=== PATIENT | male | born 1995 | race Two or more races ===

== ENCOUNTER 2017-07-03 20:01 | Emergency (ER) | payer SELFPAY ==
[2017-07-03 22:56] LABS: CHLAM PCR DETECTED (NOT DETECT); GON PCR NOT DETECTED (NOT DETECT)
[2017-07-03] MEDS ORDERED: AZITHROMYCIN 250 MG TABLET PO ONE (23:22)
[2017-07-03] MEDS ORDERED: CEFTRIAXONE INJ 250 MG VIAL IM ONE (23:22)
--- NOTE | 2017-07-03 23:28 | ER Document Report ---
ED GI/ - General Chief Complaint: STD Exposure Stated Complaint: STD CHECK Time Seen by Provider: 07/03/17 22:52 Mode of Arrival: Ambulatory Information source: Patient TRAVEL OUTSIDE OF THE [place] IN LAST 30 DAYS: No - HPI Patient complains to provider of: Other - std exposure Notes: 07/03/17 23:23 Patient is here with complaints of being exposed to chlamydia. He states that his girlfriend was positive and he would like to be checked. He complains some occasional mild burning with urination, no penile discharge or swelling. No abdominal pain. No fever. No nausea, vomiting, diarrhea. No rash. During his general exam he was noted to have a mass to the superior aspect of his left testicle I believe involving the epididymis and not the actual testicle itself. Patient states that he has had that for a long time. He denies any other complaints at this time. - Related Data Allergies/Adverse Reactions: No Known Allergies Allergy (Unverified 07/03/17 20:03) Past Medical History - Social History Smoking Status: Former Smoker Chew tobacco use (# tins/day): No Frequency of alcohol use: None Drug Abuse: None Family History: Reviewed & Not Pertinent Patient has suicidal ideation: No Patient has homicidal ideation: No Renal/ Medical History: Denies: Hx Peritoneal Dialysis Psychiatric Medical History: Reports: Hx Attention Deficit Hyperactivity Disorder Review of Systems - Review of Systems -: Yes All other systems reviewed and negative Physical Exam - Vital signs Vitals: Temp Pulse Resp BP Pulse Ox 97.9 F 81 16 114/86 H 98 07/03/17 20:15 07/03/17 20:15 07/03/17 20:15 07/03/17 20:15 07/03/17 20:15 - Notes Notes: GENERAL: alert, cooperative, nontoxic, no distress. HEAD: normocephalic, atraumatic EYES: conjunctiva pink without discharge, no external redness or swelling. EARS: no external swelling, no external redness NOSE: atraumatic, no external swelling MOUTH/THROAT: mucous membranes moist and pink, posterior pharynx without erythema, swelling, exudate. No trismus or drooling. NECK: soft, supple, full range of motion, no meningismus. CHEST: no distress, lungs clear and equal throughout. No wheezing, rales, rhonchi. CARDIAC: regular rate and rhythm, no murmur, normal capillary refill, normal pulses. No peripheral edema noted. ABDOMEN: Soft, nontender. Bone tenderness or guarding. BACK: full range of motion, no CVA tenderness. EXTREMITIES: full range of motion of all extremities. No redness, no swelling. NEURO: alert and oriented x 3, no focal deficits, full range of motion of all extremities. PYSCH: appropriate mood, affect. Patient is cooperative. SKIN: pink, warm, dry, no rash. : Circumcised penis. No penile discharge. No rash. Testicles are descended bilaterally. Right testicle normal. Left testicle with a mass to the superior aspect I believe involving the epididymis. No tenderness. No redness, swelling , rash to the scrotum. Course - Re-evaluation Re-evalutation: 07/03/17 23:25 Patient is nontoxic appearing with stable vitals. The patient is here after being exposed to chlamydia. He has had some mild dysuria but denies any other symptoms. On exam he has no signs of infection. No abdominal tenderness. Does is noted to have a mass to the superior aspect of the left testicle/ epididymis. Nontender to palpation. Patient states that has been there for quite some time. I instructed him I would like to order an ultrasound to rule out a serious source of this mass, he states that he does not have time to wait and will do this as an outpatient. I will refer him to urology as well as primary care to get established and to have this mass evaluated. He is noted to be positive for chlamydia in the emergency department. He will be treated for this in the emergency department. He was instructed to avoid sex for 1 week , always use condoms, follow-up with his primary care doctor at the next available appointment. Follow-up sooner for increasing pain, fever, swelling, redness, persistent vomiting, or for any further concerns. The patient is noted to have elevated blood pressure during today's emergency department visit. The patient was informed of this finding. The patient was instructed that this may be related to pre-hypertension and requires further evaluation with a primary care provider. The patient has no hypertensive symptoms at this time. The patient's emergency department workup and current diagnosis were explained to the patient and or family. Follow-up instructions were provided. Medications if prescribed were discussed. Instructions for when to return to the emergency department including specific worrisome symptoms were discussed with the patient and/or family. - Vital Signs Vital signs: Temp Pulse Resp BP Pulse Ox 97.9 F 81 16 114/86 H 98 07/03/17 20:15 07/03/17 20:15 07/03/17 20:15 07/03/17 20:15 07/03/17 20:15 - Laboratory Laboratory results interpreted by me: 07/03/17 20:38 Chlamydia DNA (PCR) DETECTED H Discharge - Discharge Clinical Impression: Chlamydia, Mass of left testicle Condition: Stable Disposition: HOME, SELF-CARE Instructions: Chlamydia (FORM[facility]LY [facility], 1928[facility]), Family Physicians / Practices Additional Instructions: Always use condoms. Avoid sexual intercourse for 1 week. Follow-up with your doctor or the health department for HIV and syphilis testing. Follow-up with your doctor or urology to have the mass on her left testicle evaluated further. Follow-up sooner for increasing pain, fever, abdominal pain, persistent vomiting, or for any further concerns. Your blood pressure was elevated during today's visit. Have this rechecked with your doctor. Forms: Elevated Blood Pressure, Smoking Cessation Education Referrals: KANDACE SANZ MD [NO LOCAL MD] - Follow up as needed STEFANIA BUSH MD [[employer] SPECIALIST] - Follow up as needed [facility] [Provider Group] - Follow up as needed
[2017-07-04 00:39] VITALS: BP 120/80
== END 2017-07-04 00:37 | disposition home or self-care (01) ==
LOC: ER 20:01
DX: A74.9 Chlamydial infection, unspecified (principal); N50.9 Disorder of male genital organs, unspecified; R30.9 Painful micturition, unspecified; Z87.891 Personal history of nicotine dependence; R03.0 Elevated blood-pressure reading, without diagnosis of hypertension
CPT/HCPCS: 99283; 96372; 87491; 87591; J0696

== ENCOUNTER 2018-08-15 02:15 | Emergency (ER) | payer SELFPAY ==
[2018-08-15 02:39] VITALS: BP 117/63
--- NOTE | 2018-08-15 03:21 | RADIOLOGY REPORT (SQ) ---
EXAM DESCRIPTION: XR FOOT 1-2 VIEWS COMPLETED DATE/TME: 08/15/2018 00:00 CLINICAL HISTORY: 23 years, Male, r/o foreign body COMPARISON: None. NUMBER OF VIEWS: 2 TECHNIQUE: 2 view right foot LIMITATIONS: None. FINDINGS: Negative for fracture or dislocation. Soft tissues are unremarkable IMPRESSION: Negative exam copyright 2011 [employer]- All Rights Reserved
[2018-08-15] MEDS ORDERED: DIPH/PERTUSS(ACELL)/TETANUS VAC/PF 0.5 ML SYR (>=10YO) IM ONE (05:17)
--- NOTE | 2018-08-15 06:07 | ER Document Report ---
ED General - General Chief Complaint: Puncture Wound to Foot Stated Complaint: FOOT INJURY Time Seen by Provider: 08/15/18 06:05 Notes: 23-year-old male presents with puncture wound to left foot on a nail 2 days ago. Pain and swelling, as well as tingling in the second toe has been present for about 1 day and constant. Tetanus was given before my evaluation in the ED. Denies drainage or fever. TRAVEL OUTSIDE OF THE [place] IN LAST 30 DAYS: No - Related Data Allergies/Adverse Reactions: No Known Allergies Allergy (Unverified 07/03/17 20:03) Past Medical History - Social History Smoking Status: Never Smoker Chew tobacco use (# tins/day): No Frequency of alcohol use: None Drug Abuse: None Family History: Reviewed & Not Pertinent Patient has suicidal ideation: No Patient has homicidal ideation: No Renal/ Medical History: Denies: Hx Peritoneal Dialysis Psychiatric Medical History: Reports: Hx Attention Deficit Hyperactivity Disorder Review of Systems - Review of Systems Notes: REVIEW OF SYSTEMS GEN: Denies fever, chills, weight loss ENT: Denies sore throat, nasal discharge, ear pain EYES: Denies blurry vision, eye pain, discharge CV: Denies chest pain, palpitations, edema RESP: Denies cough, shortness of breath, wheezing GI: Denies abdominal pain, nausea, vomiting, diarrhea MSK: Left foot pain SKIN: Denies rash, skin lesions LYMPH: Denies swollen glands/lymph nodes NEURO: Denies headache, focal weakness or numbness, dizziness PSYCH: Denies depression, suicidal or homicidal ideation PHYSICAL EXAMINATION General: No acute distress, well-nourished Head: Atraumatic, normocephalic ENT: Mouth normal, oropharynx moist, no exudates or tonsillar enlargement Eyes: Conjunctiva normal, pupils equal, lids normal Neck: No JVD, supple, no guarding CVS: Normal rate, regular rhythm, no murmurs Resp: No resp distress, equal and normal breath sounds bilaterally GI: Nondistended, soft, no tenderness to palpation, no rebound or guarding Ext: Healed puncture wound of the left forefoot around the second or third metatarsal head area. Minimal tenderness. Back: No CVA or midline TTP Skin: No rash, warm Lymphatic: No lymphadeopathy noted Neuro: Awake, alert. Face symmetric. GCS 15. Physical Exam - Vital signs Vitals: Temp Pulse Resp BP Pulse Ox 97.6 F 74 20 117/63 97 08/15/18 02:36 08/15/18 02:36 08/15/18 02:36 08/15/18 02:36 08/15/18 02:36 Course - Re-evaluation Re-evalutation: 08/15/18 07:26 Simple puncture wound, healing with inflammation but no signs of infection. X- ray negative. Tetanus up-to-date. Recommend supportive care. I have discussed with the patient there likely diagnosis, aftercare plan, follow-up plans and my usual and customary return precautions. They verbalized understanding of this. - Vital Signs Vital signs: Temp Pulse Resp BP Pulse Ox 97.6 F 74 20 117/63 97 08/15/18 02:36 08/15/18 02:36 08/15/18 02:36 08/15/18 02:36 08/15/18 02:36 Discharge - Discharge Clinical Impression: Puncture wound of foot Qualifiers: Encounter type: initial encounter Laterality: left Qualified Code(s): S91.332A - Puncture wound without foreign body, left foot, initial encounter Condition: Good Disposition: HOME, SELF-CARE Instructions: Puncture Wound (OM), Tetanus Immunization Given (FORM[facility]LY [facility])
== END 2018-08-15 06:11 | disposition home or self-care (01) ==
LOC: ER 02:15
PROC: 3E0234Z Introduction of Serum, Toxoid and Vaccine into Muscle, Percutaneous Approach (ICD-10-PCS; principal; 2018-08-15)
DX: S91.332A Puncture wound without foreign body, left foot, initial encounter (principal); W45.0XXA Nail entering through skin, initial encounter; R20.2 Paresthesia of skin; M79.89 Other specified soft tissue disorders; M79.672 Pain in left foot; Z23 Encounter for immunization
CPT/HCPCS: 90471; 90715; 99283